=== PATIENT | male | born 1945 | race Caucasian/White ===

== ENCOUNTER 2022-03-16 06:42 | Emergency (ER) | payer MEDICARE, OTHER ==
[2022-03-16] MEDS ORDERED: Bacitracin Oint 1 GM U/D Packet TOP ONE (07:09)
[2022-03-16] MEDS ORDERED: Lidocaine 1% 5 ML VIAL INJECT ONE (07:09)
== END 2022-03-16 09:30 | disposition home or self-care (01) ==
LOC: DL.ED 06:42
DX: S61.214A Laceration without foreign body of right ring finger without damage to nail, initial encounter (principal); S60.222A Contusion of left hand, initial encounter; E03.9 Hypothyroidism, unspecified; I10 Essential (primary) hypertension; Z79.899 Other long term (current) drug therapy; W01.0XXA Fall on same level from slipping, tripping and stumbling without subsequent striking against object, initial encounter
CPT/HCPCS: 12001; 73130-LT; 99283